=== PATIENT | female | born 1960 | race Caucasian/White ===

== ENCOUNTER 2017-01-06 14:52 | Emergency (ER) | payer MEDICARE, OTHER ==
[~2017-01-06 14:52] MED LIST: ASPIRIN CHEWABL81 MG PO; HABITROL 21 MG P1 EA TD
== END 2017-01-06 16:50 | disposition left against medical advice (07) ==
LOC: ER1 14:52
DX: Z53.21 Procedure and treatment not carried out due to patient leaving prior to being seen by health care provider (principal)

== ENCOUNTER 2020-10-18 17:03 | Emergency (ER) | payer MEDICARE, OTHER ==
[~2020-10-18 17:03] MED LIST changes: +AMOXICILLIN875 MG PO; +AUGMENTIN 875-1 EACH PO; +BACTROBAN NASAL1 G1 TOP; +DESYREL 50 MG T50 MG PO; +HYDROCHLOROTHIA25 MG PO; +MUCINEX DM ER1 EAC1 PO; +NEURONTIN 400400 MG PO; +PREDNISONE50 MG PO; +PRILOSEC OTC20 MG PO; +PRINIVIL20 MG PO; +PROTONIX40 MG PO; +TESSALON PERLE100 MG PO; +VIBRAMYCIN100 MG PO; +ZOFRAN ODT 4 MG4 MG PO; +ZOFRAN ODT 4 MG4 MG SL
== END 2020-10-18 20:44 | disposition left against medical advice (07) ==
LOC: ER1 17:03
DX: R10.9 Unspecified abdominal pain (principal); R51.9 Headache, unspecified; R05 Cough; R11.0 Nausea; Z53.21 Procedure and treatment not carried out due to patient leaving prior to being seen by health care provider

== ENCOUNTER 2020-10-25 13:33 | Emergency (ER) | payer MEDICARE, OTHER ==
[2020-10-25 14:00] LABS: HEMOGLOBIN 15.3 gm/dl (12.3-15.3); RED BLOOD COUNT 4.74 M/UL (4.00-5.10); WHITE BLOOD COUNT 5.5 K/UL (4.5-11.0)
[2020-10-25 14:21] LABS: BUN/CREATININE RATIO 24 (0-10)
[2020-10-25] MEDS ORDERED: PROTONIX40 MG PO (18:16)
== END 2020-10-25 18:25 | disposition home or self-care (01) ==
LOC: ER1 13:33
PROVIDERS: Emergency Medicine
DX: R10.11 Right upper quadrant pain (principal); R07.89 Other chest pain; R05 Cough; R10.13 Epigastric pain; I49.3 Ventricular premature depolarization; E11.9 Type 2 diabetes mellitus without complications; I11.0 Hypertensive heart disease with heart failure; I50.9 Heart failure, unspecified; J44.9 Chronic obstructive pulmonary disease, unspecified; F17.200 Nicotine dependence, unspecified, uncomplicated; Z87.19 Personal history of other diseases of the digestive system; Z88.1 Allergy status to other antibiotic agents; Z98.890 Other specified postprocedural states; Z90.49 Acquired absence of other specified parts of digestive tract; Z53.20 Procedure and treatment not carried out because of patient's decision for unspecified reasons; Z20.822 Contact with and (suspected) exposure to COVID-19
CPT/HCPCS: 71046; 80053; 81001; 82550; 82553; 83605; 83690; 83874; 83880; 84484; 85025; 93005; 99284; Q9967; U0002

== ENCOUNTER 2021-04-14 21:32 | Emergency (ER) | payer MEDICARE, OTHER ==
[~2021-04-14 21:32] MED LIST changes: -ASPIRIN CHEWABL81 MG PO
[2021-04-14 22:01] LABS: HEMOGLOBIN 11.9 gm/dl (12.3-15.3); RED BLOOD COUNT 3.76 M/UL (4.00-5.10); WHITE BLOOD COUNT 6.8 K/UL (4.5-11.0)
[2021-04-14 22:33] LABS: BUN/CREATININE RATIO 17 (0-10)
[2021-04-14] MEDS ORDERED: LASIX20 MG PO (23:39)
[2021-05-24] MEDS ORDERED: BUSPIRONE HCL5 MG PO (09:12)
[2021-05-24] MEDS ORDERED: TRAZODONE HCL100 MG PO (09:13)
[2021-05-24] MEDS ORDERED: LASIX20 MG PO (09:13)
[2021-05-24] MEDS ORDERED: PHENERGAN 25 MG25 M1 PO (09:13)
[2021-05-24] MEDS ORDERED: NEURONTIN600 MG PO (09:14)
[2021-05-24] MEDS ORDERED: AVAPRO75 MG PO (09:14)
[2021-05-24] MEDS ORDERED: OMEPRAZOLE20 MG PO (09:14)
[2021-05-24] MEDS ORDERED: BYSTOLIC5 MG PO (09:14)
[2021-05-24] MEDS ORDERED: ZOLOFT100 MG PO (09:15)
[2021-05-24] MEDS ORDERED: K-DUR TAB 20 M20 MEQ PO (09:15)
[2021-05-24] MEDS ORDERED: LEVEMIR FL100 UNIT/1 SC (10:19)
[2021-05-24] MEDS ORDERED: GLUCOPHAGE 500500 MG PO (10:20)
[2021-05-24] MEDS ORDERED: CEPHALEXIN500 M1 PO (13:05)
[2021-05-24] MEDS ORDERED: HYDROCODON-ACE1 EAC4 PO (13:05)
[2021-05-24] MEDS ORDERED: CLINDAMYCIN HC300 MG PO (13:05)
[2021-05-24] MEDS ORDERED: ECOTRIN325 MG PO (22:32)
[2021-06-09] MEDS ORDERED: OXYCODONE HCL5 MG PO (12:50)
== END 2021-04-14 23:50 | disposition home or self-care (01) ==
LOC: ER1 21:32
PROVIDERS: Physician Assistant
DX: R07.89 Other chest pain (principal); F41.9 Anxiety disorder, unspecified; E11.40 Type 2 diabetes mellitus with diabetic neuropathy, unspecified; E11.65 Type 2 diabetes mellitus with hyperglycemia; E78.5 Hyperlipidemia, unspecified; I11.0 Hypertensive heart disease with heart failure; I50.9 Heart failure, unspecified; E11.9 Type 2 diabetes mellitus without complications; F17.210 Nicotine dependence, cigarettes, uncomplicated
CPT/HCPCS: 71045; 80053; 82550; 82553; 83874; 83880; 84484; 85025; 93005; 99285

== ENCOUNTER 2021-05-28 15:40 | Inpatient (IN) | payer MEDICARE, OTHER ==
[~2021-05-28] VITALS: Ht 162.6 cm; Wt 67.6 kg
[~2021-05-28 15:40] MED LIST changes: +AVAPRO75 MG PO; +BUSPIRONE HCL5 MG PO; +BYSTOLIC5 MG PO; +CEPHALEXIN500 M1 PO; +CLINDAMYCIN HC300 MG PO; +ECOTRIN325 MG PO; +GLUCOPHAGE 500500 MG PO; +HYDROCODON-ACE1 EAC4 PO; +K-DUR TAB 20 M20 MEQ PO; +LASIX20 MG PO; +LEVEMIR FL100 UNIT/1 SC; +NEURONTIN600 MG PO; +OMEPRAZOLE20 MG PO; +PHENERGAN 25 MG25 M1 PO; +TRAZODONE HCL100 MG PO; +ZOLOFT100 MG PO
[2021-05-28 17:20] LABS: HEMOGLOBIN 13.9 gm/dl (12.3-15.3); RED BLOOD COUNT 4.54 M/UL (4.00-5.10); WHITE BLOOD COUNT 9.1 K/UL (4.5-11.0)
[2021-05-29 06:59] LABS: HEMOGLOBIN 13.2 gm/dl (12.3-15.3); RED BLOOD COUNT 4.34 M/UL (4.00-5.10)
[2021-05-29 07:01] LABS: WHITE BLOOD COUNT 11.6 K/UL (4.5-11.0)
[2021-05-30 05:31] LABS: HEMOGLOBIN 12.4 gm/dl (12.3-15.3); RED BLOOD COUNT 4.05 M/UL (4.00-5.10); WHITE BLOOD COUNT 9.3 K/UL (4.5-11.0)
--- NOTE | 2021-05-30 22:53 | NUR ---
PT REQUESTED TO GET UP TO SIT IN CHAIR. ASSISTED HER WITH DOING SO. SHE TOLERATED WELL. WHILE SITTING UP HER BP NOTED TO BE VERY LOW WITH SYSTOLIC PRESSURE RANGING FROM 60'S TO 80'S. PT IS ASYMPTOMATIC AND DENIES ANY PAIN, DIZZINESS, OR SYMPTOMS OF HYPOTENSION. NOTIFIED AND IV FLUID ORDERS OBTAINED.
--- NOTE | 2021-05-30 23:15 | NUR ---
PTS BP 64/37 PT AROUSES TO VOICE AND TOUCH. SHE CONTINUES TO DENY ANY SYMPTOMS. NOTIFIED MD AND ORDERS RECIEVED FOR BOLUS 500 AND LEVOPHED. CLARIFIED WITH MD THAT PT WAS A HEART FAILURE PT. PER MD OKAY TO GIVE.
--- NOTE | 2021-05-31 04:37 | NUR ---
PATIENT CALLING OUT WANTING HER PAIN MEDICIATION. BP IS 108/51 WITH 10MCG OF LEVOPHED DRIP GOING. THROUGHOUT THE NIGHT PTS BP WAS VERY LOW. GAVE 1LITER OF NS BOLUS TOTAL AND STARTED LEVOPHED. EDUCATION PROVIDED TO PATIENT ABOUT NARCOTICS AND BP AND NEED TO MAINTAIN BP. PT SEEMS VERY ANXIOUS AND ANGRY AND UPSET. NOTIFIED CHARGE NURSE WHO IS SPEAKING WITH THE PATIENT.
[2021-05-31 05:59] LABS: HEMOGLOBIN 11.3 gm/dl (12.3-15.3); RED BLOOD COUNT 3.71 M/UL (4.00-5.10); WHITE BLOOD COUNT 9.9 K/UL (4.5-11.0)
[2021-05-31 06:21] LABS: BUN/CREATININE RATIO 36 (0-10)
[2021-06-01 03:38] LABS: HEMOGLOBIN 10.1 gm/dl (12.3-15.3); WHITE BLOOD COUNT 7.7 K/UL (4.5-11.0)
[2021-06-01 03:40] LABS: RED BLOOD COUNT 3.29 M/UL (4.00-5.10)
[2021-06-01 04:02] LABS: BUN/CREATININE RATIO 27 (0-10)
[2021-06-02 03:25] LABS: HEMOGLOBIN 9.5 gm/dl (12.3-15.3); RED BLOOD COUNT 3.11 M/UL (4.00-5.10)
[2021-06-02 03:35] LABS: WHITE BLOOD COUNT 5.7 K/UL (4.5-11.0)
[2021-06-02 04:03] LABS: BUN/CREATININE RATIO 25 (0-10)
[2021-06-03 03:13] LABS: HEMOGLOBIN 9.7 gm/dl (12.3-15.3); RED BLOOD COUNT 3.15 M/UL (4.00-5.10); WHITE BLOOD COUNT 6.2 K/UL (4.5-11.0)
[2021-06-03 03:38] LABS: BUN/CREATININE RATIO 24 (0-10)
[2021-06-03] MEDS ORDERED: NICOTINE PATCH1 EAC2 TOP (18:18)
[2021-06-03] MEDS ORDERED: IPRAT-ALBUT 0.5-3 ML NEB (18:30)
[2021-06-03] MEDS ORDERED: CLOPIDOGREL75 MG PO (18:30)
[2021-06-03] MEDS ORDERED: FUROSEMIDE20 MG PO (18:30)
[2021-06-03] MEDS ORDERED: DIGOXIN125 MCG PO (18:30)
[2021-06-03] MEDS ORDERED: ASPIRIN EC81 MG PO (18:30)
[2021-06-03] MEDS ORDERED: ATORVASTATIN CA20 MG PO (18:30)
[2021-06-03] MEDS ORDERED: OMNICEF 300 MG300 MG PO (18:33)
[2021-06-03] MEDS ORDERED: OXYCODONE HCL5 MG PO (18:33)
--- NOTE | 2021-06-03 20:00 | NUR ---
PATIENT DISCHARGED HOME AT THIS TIME WITH ASSISTANCE OF FAMILY MEMBER. IV TAKEN OUT AND NO BLEEDING WAS NOTED. LIFE VEST ON PATIENT AND NO ISSUES NOTED WITH MONITORING DEVICE TO LIFE VEST.
== END 2021-06-03 20:10 | disposition home health service (06) | DRG 280 ==
LOC: ER1 15:40 → PROG CARE 20:14 → CDU 20:14 → CCU 05-29 10:21 → PROG CARE 05-30 15:58
PROVIDERS: Internal Medicine; Internal Medicine Cardiovascular Disease; Physician Assistant; ADMIT Internal Medicine
PROC: 4A023N7 Measurement of Cardiac Sampling and Pressure, Left Heart, Percutaneous Approach (ICD-10-PCS; principal; 2021-05-29)
PROC: B2111ZZ Fluoroscopy of Multiple Coronary Arteries using Low Osmolar Contrast (ICD-10-PCS; 2021-05-29)
PROC: B2151ZZ Fluoroscopy of Left Heart using Low Osmolar Contrast (ICD-10-PCS; 2021-05-29)
PROC: B24BZZZ Ultrasonography of Heart with Aorta (ICD-10-PCS; 2021-05-29)
DX: I21.4 Non-ST elevation (NSTEMI) myocardial infarction (principal); J96.01 Acute respiratory failure with hypoxia; I50.23 Acute on chronic systolic (congestive) heart failure; E11.9 Type 2 diabetes mellitus without complications; Z20.822 Contact with and (suspected) exposure to COVID-19; J44.9 Chronic obstructive pulmonary disease, unspecified; I49.5 Sick sinus syndrome; I11.0 Hypertensive heart disease with heart failure; F17.210 Nicotine dependence, cigarettes, uncomplicated; E78.5 Hyperlipidemia, unspecified; K21.9 Gastro-esophageal reflux disease without esophagitis; F32.9 Major depressive disorder, single episode, unspecified; I25.5 Ischemic cardiomyopathy; G89.29 Other chronic pain; I35.0 Nonrheumatic aortic (valve) stenosis; F41.9 Anxiety disorder, unspecified; I05.2 Rheumatic mitral stenosis with insufficiency; Z82.3 Family history of stroke; Z88.8 Allergy status to other drugs, medicaments and biological substances; Z95.2 Presence of prosthetic heart valve; Z95.0 Presence of cardiac pacemaker; Z82.49 Family history of ischemic heart disease and other diseases of the circulatory system; Z90.49 Acquired absence of other specified parts of digestive tract; Z88.1 Allergy status to other antibiotic agents; Z79.4 Long term (current) use of insulin
CPT/HCPCS: 36415; 36600; 71045; 71046; 80053; 80061; 80202; 82550; 82553; 82728; 82803; 82962; 83036; 83540; 83550; 83735; 83874; 83880; 84100; 84484; 85025; 85027; 85347; 85610; 85730; 93005; 93308; 94640; 94660; 94760; 96374; 97161; 99152; 99153; 99285; C1769; C1887; C1894; J1335; J1644; J1650; J1940; J2270; J2405; J3010; J3370; J7040; J7070; Q9965; U0002

== ENCOUNTER 2021-06-14 17:18 | Emergency (ER) | payer MEDICARE, OTHER ==
[~2021-06-14 17:18] MED LIST changes: +ASPIRIN EC81 MG PO; +ATORVASTATIN CA20 MG PO; +CLOPIDOGREL75 MG PO; +DIGOXIN125 MCG PO; +FUROSEMIDE20 MG PO; +IPRAT-ALBUT 0.5-3 ML NEB; +NICOTINE PATCH1 EAC2 TOP; +OMNICEF 300 MG300 MG PO; +OXYCODONE HCL5 MG PO
[2021-06-14 18:52] LABS: HEMOGLOBIN 11.2 gm/dl (12.3-15.3); RED BLOOD COUNT 3.64 M/UL (4.00-5.10); WHITE BLOOD COUNT 6.1 K/UL (4.5-11.0)
== END 2021-06-14 23:06 | disposition home or self-care (01) ==
LOC: ER1 17:18
PROVIDERS: Student in an Organized Health Care Education/Training Program
DX: I11.0 Hypertensive heart disease with heart failure (principal); I50.9 Heart failure, unspecified; E11.9 Type 2 diabetes mellitus without complications; J44.9 Chronic obstructive pulmonary disease, unspecified; F17.200 Nicotine dependence, unspecified, uncomplicated; Z20.822 Contact with and (suspected) exposure to COVID-19
CPT/HCPCS: 71045; 71275; 80053; 82550; 82553; 83874; 83880; 84484; 85025; 85379; 93005; 99285; J1940; J2270; J2405; Q9967; U0002

== ENCOUNTER 2021-06-17 13:52 | Emergency (ER) | payer MEDICARE, OTHER ==
[2021-06-17 14:18] LABS: WHITE BLOOD COUNT 7.1 K/UL (4.5-11.0)
[2021-06-17 14:19] LABS: RED BLOOD COUNT 4.19 M/UL (4.00-5.10)
[2021-06-17 15:06] LABS: BUN/CREATININE RATIO 15 (0-10)
== END 2021-06-17 19:07 | disposition home or self-care (01) ==
LOC: ER1 13:52
PROVIDERS: Nurse Practitioner
DX: R07.89 Other chest pain (principal); I11.0 Hypertensive heart disease with heart failure; I50.9 Heart failure, unspecified; E11.9 Type 2 diabetes mellitus without complications; Z95.1 Presence of aortocoronary bypass graft
CPT/HCPCS: 71046; 80053; 82550; 82553; 83735; 83874; 84484; 85025; 93005; 99285

== ENCOUNTER 2021-07-06 18:02 | Inpatient (IN) | payer MEDICARE, OTHER ==
[~2021-07-06] VITALS: Ht 144.8 cm; Wt 60.8 kg
[2021-07-06 18:48] LABS: HEMOGLOBIN 13.5 gm/dl (12.3-15.3); RED BLOOD COUNT 4.53 M/UL (4.00-5.10); WHITE BLOOD COUNT 4.5 K/UL (4.5-11.0)
[2021-07-06 19:25] LABS: BUN/CREATININE RATIO 27 (0-10)
[2021-07-08 03:41] LABS: HEMOGLOBIN 13.7 gm/dl (12.3-15.3); RED BLOOD COUNT 4.6 M/UL (4.00-5.10); WHITE BLOOD COUNT 3.9 K/UL (4.5-11.0)
[2021-07-08 04:04] LABS: BUN/CREATININE RATIO 27 (0-10)
[2021-07-09 06:04] LABS: HEMOGLOBIN 12.8 gm/dl (12.3-15.3); RED BLOOD COUNT 4.31 M/UL (4.00-5.10); WHITE BLOOD COUNT 4.8 K/UL (4.5-11.0)
[2021-07-10 06:48] LABS: HEMOGLOBIN 11.2 gm/dl (12.3-15.3); WHITE BLOOD COUNT 4.7 K/UL (4.5-11.0)
[2021-07-10 06:51] LABS: RED BLOOD COUNT 3.78 M/UL (4.00-5.10)
[2021-07-10] MEDS ORDERED: RANEXA500 MG PO (10:24)
[2021-07-10] MEDS ORDERED: NITROGLYCERIN0.4 MG SL (10:24)
[2021-07-10] MEDS ORDERED: METOPROLOL SUCC25 MG PO (10:24)
--- NOTE | 2021-07-10 11:43 | NUR ---
Reached the regional sales directorimpersonator character for [facility]. Nurse regional sales director supposed to return call.
--- NOTE | 2021-07-10 11:52 | NUR ---
report called to [facility] home health nurse at this time.
== END 2021-07-10 13:02 | disposition home or self-care (01) | DRG 313 ==
LOC: ER1 18:02 → CDU 20:27 → PROG CARE 07-07 09:25 → MED SURG 4 07-08 16:34
PROVIDERS: Nurse Practitioner; ADMIT Internal Medicine
DX: R07.89 Other chest pain (principal); I50.33 Acute on chronic diastolic (congestive) heart failure; Z20.822 Contact with and (suspected) exposure to COVID-19; N17.9 Acute kidney failure, unspecified; J96.11 Chronic respiratory failure with hypoxia; R07.81 Pleurodynia; I25.5 Ischemic cardiomyopathy; D64.9 Anemia, unspecified; J44.9 Chronic obstructive pulmonary disease, unspecified; F17.210 Nicotine dependence, cigarettes, uncomplicated; K21.9 Gastro-esophageal reflux disease without esophagitis; E11.9 Type 2 diabetes mellitus without complications; I49.5 Sick sinus syndrome; I25.10 Atherosclerotic heart disease of native coronary artery without angina pectoris; I25.2 Old myocardial infarction; Z79.4 Long term (current) use of insulin; Z79.01 Long term (current) use of anticoagulants; Z79.82 Long term (current) use of aspirin; Z79.899 Other long term (current) drug therapy; Z95.1 Presence of aortocoronary bypass graft; Z99.81 Dependence on supplemental oxygen; Z87.59 Personal history of other complications of pregnancy, childbirth and the puerperium; Z95.810 Presence of automatic (implantable) cardiac defibrillator; Z82.49 Family history of ischemic heart disease and other diseases of the circulatory system; Z88.1 Allergy status to other antibiotic agents; Z91.14 Patient's other noncompliance with medication regimen
CPT/HCPCS: 36415; 71045; 80048; 80053; 81001; 82550; 82553; 82962; 83735; 83874; 83880; 84484; 85025; 85027; 93005; 94664; 96372; 96374; 96375; 99285; G0378; J1650; J1940; J2270; J2405; J7030; U0002

== ENCOUNTER 2022-01-26 21:45 | Emergency (ER) | payer MEDICARE, OTHER ==
[~2022-01-26 21:45] MED LIST changes: +ASPIRIN325 MG PO; +DECADRON6 MG PO; +FLONASE ALLER15.8 ML; +METOPROLOL SUCC25 MG PO; +NEBIVOLOL HCL5 MG PO; +NITROGLYCERIN0.4 MG SL; +RANEXA500 MG PO; +VITAMIN C 500500 MG PO
[2022-01-26 22:54] LABS: HEMOGLOBIN 14.6 gm/dl (12.3-15.3); RED BLOOD COUNT 4.52 M/UL (4.00-5.10); WHITE BLOOD COUNT 6.2 K/UL (4.5-11.0)
[2022-01-26 23:38] LABS: BUN/CREATININE RATIO 32 (0-10)
== END 2022-01-27 03:02 | disposition home or self-care (01) ==
LOC: ER1 21:45
PROVIDERS: Family Medicine
DX: R07.9 Chest pain, unspecified (principal); J44.9 Chronic obstructive pulmonary disease, unspecified; E11.9 Type 2 diabetes mellitus without complications; E78.5 Hyperlipidemia, unspecified; F17.200 Nicotine dependence, unspecified, uncomplicated; I50.22 Chronic systolic (congestive) heart failure; Z95.0 Presence of cardiac pacemaker
CPT/HCPCS: 71045; 73502; 80053; 82550; 82553; 84484; 85025; 93005; 96374; 96375; 99285; J2270; J2405

== ENCOUNTER 2022-02-09 16:21 | Emergency (ER) | payer MEDICARE, OTHER ==
[2022-02-09 17:13] LABS: HEMOGLOBIN 13.7 gm/dl (12.3-15.3); RED BLOOD COUNT 4.26 M/UL (4.00-5.10); WHITE BLOOD COUNT 5.4 K/UL (4.5-11.0)
[2022-02-09 17:44] LABS: BUN/CREATININE RATIO 15 (0-10)
== END 2022-02-09 22:02 | disposition home or self-care (01) ==
LOC: ER1 16:21
PROVIDERS: Family Medicine
DX: R07.9 Chest pain, unspecified (principal); M25.552 Pain in left hip; E11.40 Type 2 diabetes mellitus with diabetic neuropathy, unspecified; E78.5 Hyperlipidemia, unspecified; I50.20 Unspecified systolic (congestive) heart failure; F17.200 Nicotine dependence, unspecified, uncomplicated; Z79.4 Long term (current) use of insulin; Z88.1 Allergy status to other antibiotic agents; Z79.82 Long term (current) use of aspirin; Z79.84 Long term (current) use of oral hypoglycemic drugs
CPT/HCPCS: 71045; 73502; 80053; 82550; 82553; 84484; 85025; 85610; 93005; 96374; 99285; J2405

== ENCOUNTER 2022-03-08 19:37 | Observation (INO) | payer MEDICARE, OTHER ==
[~2022-03-08] VITALS: Ht 142.2 cm; Wt 49.9 kg
[2022-03-08 21:02] LABS: HEMOGLOBIN 13.3 gm/dl (12.3-15.3); RED BLOOD COUNT 4.21 M/UL (4.00-5.10); WHITE BLOOD COUNT 5.2 K/UL (4.5-11.0)
[2022-03-08 21:41] LABS: BUN/CREATININE RATIO 17 (0-10)
[2022-03-09] MEDS ORDERED: LASIX20 MG PO (09:48)
[2022-03-10 06:35] LABS: HEMOGLOBIN 13.1 gm/dl (12.3-15.3); RED BLOOD COUNT 4.12 M/UL (4.00-5.10); WHITE BLOOD COUNT 4.6 K/UL (4.5-11.0)
[2022-03-10 06:56] LABS: BUN/CREATININE RATIO 21 (0-10)
[2022-03-11 07:05] LABS: HEMOGLOBIN 12.8 gm/dl (12.3-15.3); RED BLOOD COUNT 4.04 M/UL (4.00-5.10); WHITE BLOOD COUNT 4.4 K/UL (4.5-11.0)
[2022-03-11 07:34] LABS: BUN/CREATININE RATIO 22 (0-10)
== END 2022-03-11 16:52 | disposition home or self-care (01) ==
LOC: ER1 19:37 → CDU 23:45 → MED SURG 4 03-09 18:24
PROVIDERS: Physician Assistant; ADMIT Internal Medicine
DX: R07.89 Other chest pain (principal); R55 Syncope and collapse; I50.22 Chronic systolic (congestive) heart failure; I25.5 Ischemic cardiomyopathy; J44.9 Chronic obstructive pulmonary disease, unspecified; J96.11 Chronic respiratory failure with hypoxia; I25.10 Atherosclerotic heart disease of native coronary artery without angina pectoris; E11.40 Type 2 diabetes mellitus with diabetic neuropathy, unspecified; F17.200 Nicotine dependence, unspecified, uncomplicated; D64.9 Anemia, unspecified; F41.9 Anxiety disorder, unspecified; G89.4 Chronic pain syndrome; Z99.81 Dependence on supplemental oxygen; Z95.1 Presence of aortocoronary bypass graft; Z88.1 Allergy status to other antibiotic agents; Z79.82 Long term (current) use of aspirin; Z79.899 Other long term (current) drug therapy
CPT/HCPCS: ECHO; 36415; 70450; 71045; 78452; 80053; 82550; 82553; 82607; 82746; 82962; 83036; 83735; 84439; 84443; 84484; 84550; 85025; 85379; 86140; 93005; 93017; 93306; 96372; 96374; 96375; 96376; 97161; 97165; 99285; A9502; G0378; J1650; J2270; J2405; J2785; Q9967

== ENCOUNTER 2022-04-01 12:11 | Emergency (ER) | payer MEDICARE, OTHER ==
[2022-04-01 14:36] LABS: HEMOGLOBIN 15.2 gm/dl (12.3-15.3); RED BLOOD COUNT 4.73 M/UL (4.00-5.10); WHITE BLOOD COUNT 7.7 K/UL (4.5-11.0)
[2022-04-01 15:17] LABS: BUN/CREATININE RATIO 25 (0-10)
== END 2022-04-01 16:25 | disposition home or self-care (01) ==
LOC: ER1 12:11
PROVIDERS: Family Medicine
DX: R07.9 Chest pain, unspecified (principal); M54.32 Sciatica, left side; I25.10 Atherosclerotic heart disease of native coronary artery without angina pectoris; I50.20 Unspecified systolic (congestive) heart failure; J44.9 Chronic obstructive pulmonary disease, unspecified; E11.9 Type 2 diabetes mellitus without complications; Z79.84 Long term (current) use of oral hypoglycemic drugs; Z79.82 Long term (current) use of aspirin; Z79.899 Other long term (current) drug therapy
CPT/HCPCS: 71046; 73502; 80053; 82550; 82553; 84484; 85025; 93005; 96374; 96375; 99285; J2270; J2405

== ENCOUNTER 2022-04-24 01:57 | Emergency (ER) | payer MEDICARE, OTHER ==
[2022-04-24 06:10] LABS: HEMOGLOBIN 12.2 gm/dl (12.3-15.3); RED BLOOD COUNT 3.74 M/UL (4.00-5.10); WHITE BLOOD COUNT 5.8 K/UL (4.5-11.0)
== END 2022-04-24 04:00 | disposition left against medical advice (07) ==
LOC: ER1 01:57
DX: R10.13 Epigastric pain (principal); J44.9 Chronic obstructive pulmonary disease, unspecified; E11.9 Type 2 diabetes mellitus without complications; I10 Essential (primary) hypertension; F17.200 Nicotine dependence, unspecified, uncomplicated; Z79.82 Long term (current) use of aspirin; Z88.1 Allergy status to other antibiotic agents
CPT/HCPCS: 71045; 82550; 82553; 83874; 84484; 85025; 93005; 94664; 99284

== ENCOUNTER 2022-04-24 12:39 | Emergency (ER) | payer MEDICARE, OTHER | END 2022-04-24 12:51 | disposition left against medical advice (07) | LOC: ER1 12:39 | DX: Z53.21 Procedure and treatment not carried out due to patient leaving prior to being seen by health care provider (principal) ==

== ENCOUNTER → 2022-05-07 | Emergency (ER) | payer MEDICARE, OTHER ==
[2022-05-07 21:28] LABS: HEMOGLOBIN 13.8 gm/dl (12.3-15.3); RED BLOOD COUNT 4.24 M/UL (4.00-5.10); WHITE BLOOD COUNT 9.7 K/UL (4.5-11.0)
[2022-05-07 21:51] LABS: BUN/CREATININE RATIO 25 (0-10)
== END | disposition left against medical advice (07) ==
LOC: ER1 21:03
PROVIDERS: Family Medicine
DX: Z53.21 Procedure and treatment not carried out due to patient leaving prior to being seen by health care provider (principal)
CPT/HCPCS: 71045; 80053; 82550; 82553; 84484; 85025; 93005

== ENCOUNTER 2022-05-23 14:52 | Emergency (ER) | payer MEDICARE, OTHER ==
[2022-05-23 16:25] LABS: HEMOGLOBIN 13.2 gm/dl (12.3-15.3); RED BLOOD COUNT 4.08 M/UL (4.00-5.10); WHITE BLOOD COUNT 7.1 K/UL (4.5-11.0)
[2022-05-23 17:09] LABS: BUN/CREATININE RATIO 21 (0-10)
== END 2022-05-23 19:51 | disposition home or self-care (01) ==
LOC: ER1 14:52
PROVIDERS: Physician Assistant
DX: R07.2 Precordial pain (principal); I51.9 Heart disease, unspecified; E11.9 Type 2 diabetes mellitus without complications; I25.2 Old myocardial infarction; J44.9 Chronic obstructive pulmonary disease, unspecified; F17.200 Nicotine dependence, unspecified, uncomplicated; Z88.1 Allergy status to other antibiotic agents; Z79.82 Long term (current) use of aspirin; Z79.02 Long term (current) use of antithrombotics/antiplatelets
CPT/HCPCS: 71045; 80053; 82550; 82553; 83880; 84484; 85025; 85379; 93005; 96374; 96375; 99285; J1885; J2405

== ENCOUNTER 2022-06-03 15:18 | Emergency (ER) | payer MEDICARE, OTHER | END 2022-06-03 20:22 | disposition left against medical advice (07) | LOC: ER1 15:18 | DX: M79.605 Pain in left leg (principal); I11.0 Hypertensive heart disease with heart failure; I50.9 Heart failure, unspecified; J45.909 Unspecified asthma, uncomplicated; E11.9 Type 2 diabetes mellitus without complications; F17.210 Nicotine dependence, cigarettes, uncomplicated; Z71.6 Tobacco abuse counseling; W19.XXXA Unspecified fall, initial encounter | CPT/HCPCS: 71100; 73502; 73552; 99281 ==